=== PATIENT | female | born 1950 | race Caucasian/White ===

== ENCOUNTER 2024-08-24 15:13 | Emergency (ER) | payer MEDICARE ==
[~2024-08-24] VITALS: Ht 165.1 cm; Wt 95.3 kg
[2024-08-24 17:42] VITALS: BP 146/70; TEMP 97.7; O2SAT 97
== END 2024-08-24 17:52 | disposition home or self-care (01) ==
LOC: M ED 15:13
DX: M79.604 Pain in right leg (principal); J44.9 Chronic obstructive pulmonary disease, unspecified; I10 Essential (primary) hypertension; E05.00 Thyrotoxicosis with diffuse goiter without thyrotoxic crisis or storm; F31.9 Bipolar disorder, unspecified; Z88.8 Allergy status to other drugs, medicaments and biological substances; Z79.51 Long term (current) use of inhaled steroids; Z79.899 Other long term (current) drug therapy

== ENCOUNTER 2024-08-27 08:19 | Emergency (ER) | payer MEDICARE ==
[~2024-08-27] VITALS: Ht 165.1 cm; Wt 94.2 kg
[2024-08-27] MEDS ORDERED: FLUTISP (08:33)
[2024-08-27] MEDS ORDERED: TREL1AER (08:33)
[2024-08-27] MEDS ORDERED: ARIP1TAB6 (08:33)
[2024-08-27] MEDS ORDERED: DULO1CAP6 (08:33)
[2024-08-27] MEDS ORDERED: MIRTAZAPINE (08:33)
[2024-08-27] MEDS ORDERED: METO1TAB7 (08:33)
[2024-08-27] MEDS ORDERED: LEVO75TA4 (08:33)
[2024-08-27] MEDS ORDERED: LOSA100T46 (08:33)
[2024-08-27] MEDS ORDERED: HYDR-3363 (08:33)
[2024-08-27] MEDS ORDERED: ATOR40TA75 (08:33)
[2024-08-27] MEDS ORDERED: OMEP-173 (08:33)
[2024-08-27] MEDS ORDERED: GALC100S (08:33)
[2024-08-27] MEDS ORDERED: NARA1TAB (08:33)
[2024-08-27] MEDS ORDERED: AMPHET/DEXTR (08:33)
[2024-08-27] MEDS ORDERED: ALBU8.5H (08:33)
[2024-08-27] MEDS ORDERED: AMLO1TAB24 (08:33)
[2024-08-27] MEDS ORDERED: SUMA6PEN3 (08:33)
[2024-08-27 09:50] VITALS: BP 127/60; TEMP 97; O2SAT 97
== END 2024-08-27 10:18 | disposition home or self-care (01) ==
LOC: M ED 08:19
DX: R22.41 Localized swelling, mass and lump, right lower limb (principal); I10 Essential (primary) hypertension; E78.5 Hyperlipidemia, unspecified; Z88.8 Allergy status to other drugs, medicaments and biological substances; Z79.51 Long term (current) use of inhaled steroids; Z79.899 Other long term (current) drug therapy